=== PATIENT | male | born 1995 | race Caucasian/White ===

== ENCOUNTER 2016-09-01 14:09 | Emergency (ER) | payer MEDICAID ==
[~2016-09-01] VITALS: Ht 172.7 cm; Wt 78.7 kg
[2016-09-01] MEDS ORDERED: CETI10CA PO (14:50)
[2016-09-01] MEDS ORDERED: MAGN296S PO (14:50)
[2016-09-01 15:28] LABS: ASPARTATE AMINO TRANSFERASE 7 U/L (15-37); BLOOD UREA NITROGEN 5 mg/dL (7-18)
[2016-09-01 15:57] VITALS: BP 127/89
== END 2016-09-01 16:13 | disposition home or self-care (01) ==
LOC: ED 14:46
DX: K59.00 Constipation, unspecified (principal)
CPT/HCPCS: 36415; 74022; 80053; 81003; 85025

== ENCOUNTER 2016-09-06 11:30 | Emergency (ER) | payer MEDICAID ==
[~2016-09-06] VITALS: Ht 172.7 cm; Wt 78.2 kg
[~2016-09-06 11:30] MED LIST: CETI10CA PO; MAGN296S PO
[2016-09-06 11:33] VITALS: BP 155/94
== END 2016-09-06 13:18 | disposition left against medical advice (07) ==
LOC: ED 13:12
DX: R10.9 Unspecified abdominal pain (principal); Z53.21 Procedure and treatment not carried out due to patient leaving prior to being seen by health care provider